=== PATIENT | male | born 1995 | race Caucasian/White ===

== ENCOUNTER 2019-04-16 18:15 | Emergency (ER) | payer OTHER ==
[~2019-04-16] VITALS: Ht 180.3 cm; Wt 95.3 kg
[2019-04-16] MEDS ORDERED: FLUORESCEIN 1MG EYE STRIP. ONE (18:41)
[2019-04-16] MEDS ORDERED: TETRACAINE 0.5% OPHTH SOLUTION 4ML BOTTLE. OS ONE (18:45)
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
[2019-04-16] MEDS ORDERED: MELO7.5T29 PO (19:17)
[2019-04-16] MEDS ORDERED: POLY10DR OS (19:17)
[2019-04-16] MEDS ORDERED: POLYMYXIN/TRIMETHOPRIM OPHTH SOLUTION 10ML BOTTLE. ONE (19:22)
[2019-04-16 19:24] VITALS: BP 132/74
[2019-04-16] MEDS ORDERED: POLYMYXIN/TRIMETHOPRIM OPHTH SOLUTION 10ML BOTTLE. OS ONE (19:45)
== END 2019-04-16 19:27 | disposition home or self-care (01) ==
LOC: ER 18:15
DX: S05.92XA Unspecified injury of left eye and orbit, initial encounter (principal); Z77.21 Contact with and (suspected) exposure to potentially hazardous body fluids; W50.0XXA Accidental hit or strike by another person, initial encounter; Y93.89 Activity, other specified; Y92.89 Other specified places as the place of occurrence of the external cause; Y99.0 Civilian activity done for income or pay
CPT/HCPCS: 86703; 86705; 86709; 86803; 87340; 99284